=== PATIENT | female | born 1935 | race Caucasian/White ===

== ENCOUNTER 2018-03-16 22:59 | Emergency (ER) | payer OTHER ==
[~2018-03-16] VITALS: Ht 149.9 cm; Wt 58.2 kg
[~2018-03-16 22:59] MED LIST: AZIT500P1 PO; FAMO-90 PO; KEF500 PO; LISI10TA11; NAPR-1718 PO
[2018-03-16 23:12] VITALS: BP 181/74
[2018-03-16] MEDS ORDERED: VITD1000 PO (23:16)
[2018-03-16] MEDS ORDERED: ASPI81CT89 PO (23:16)
[2018-03-16] MEDS ORDERED: LOSA50TA39 PO (23:16)
--- NOTE | 2018-03-16 23:25 | NUR ---
BIB DAUGHTER. PT C/O CHEST DISCOMFORT X1 HR. PT STATES SHE WAS AT [facility] AND HAD HER BP TAKEN WHERE IT READ 180/77. PT HAS HX OF HTN AND HAS HOME MEDS. SHE STATES DIZZINESS BUT NO NAUSEA OR VOMITING AT THIS TIME. SHE HAS HEAD ACHE AND RIGHT SHOULDER PAIN. PT STATES 2/10 CHEST PAIN WITH BP OF 158/68 UPON ER ARRIVAL. A&OX4. PT DENIES SOB OR DYSPNEA. DAUGHTER AT BEDSIDE. ER MY AWARE. CONTINUE TO MONITOR.
--- NOTE | 2018-03-17 | NUR ---
PT IN BED POSITIONED FOR COMFORT WITH FAMILY AT BEDSIDE. VSS. ER MD AWARE. CONTINUE TO MONITOR.
[2018-03-17 00:29] LABS: BASOPHILS % (AUTO) 0.4 % (0.0-2.0); EOSINOPHILS # (AUTO) 0.1 K/uL (0-0.4); EOSINOPHILS % (AUTO) 1.2 % (0.0-4.0); HEMATOCRIT 36.1 % (36-48); LYMPHOCYTES # (AUTO) 2.6 K/uL (2.5-16.5); LYMPHOCYTES % (AUTO) 37.7 % (20.5-51.1); MEAN CORPUSCULAR HEMOGLOBIN 30 pg (27-31); MEAN CORPUSCULAR HGB CONC 33 g/dL (33-37); MEAN CORPUSCULAR VOLUME 91.1 fL (80-94); MONOCYTES # (AUTO) 0.6 K/uL (0.8-1.0); MONOCYTES % (AUTO) 8.1 % (1.7-9.3); NEUTROPHILS # (AUTO) 3.6 K/uL (1.8-7.7); NEUTROPHILS % (AUTO) 52.6 % (42.2-75.2); PLATELET COUNT (AUTO) 195 K/uL (140-450); RED BLOOD CELL COUNT(AUTO) 3.96 MIL/uL (4.20-5.40); RED CELL DISTRIBUTION WIDTH 14.1 % (11.6-13.7); WHITE BLOOD COUNT (AUTO) 6.8 K/uL (4.8-10.8)
[2018-03-17 00:36] LABS: APPEARANCE,URINE CLEAR (CLEAR); BILIRUBIN,URINE NEGATIVE (NEGATIVE); BLOOD, URINE TRACE-L (NEGATIVE); COLOR,URINE YELLOW (YELLOW); LEUKOCYTE ESTERASE ,URINE 1+ (NEGATIVE); NITRITE, URINE NEGATIVE (NEGATIVE); UGLUCOSE NEGATIVE (NEGATIVE)
[2018-03-17 00:47] LABS: PROTHROMBIN TIME 9.3 secs (10.8-13.4)
[2018-03-17 00:48] LABS: RBC,URINE 0-5 (RARE) /HPF (0-5); WBC,URINE 0-5 (RARE) /HPF (0-5)
[2018-03-17 00:49] LABS: ALBUMIN 3.8 g/dL (3.4-5.0); ANION GAP 11.9 (8-16); ASPARTATE AMINOTRANSFERASE 23 U/L (15-37); CARBON DIOXIDE 28.5 mmol/L (21-32); CHLORIDE 100 mmol/L (98-107); GLUCOSE 99 mg/dL (74-106); POTASSIUM 4.4 mmol/L (3.5-5.1); SODIUM SERUM 136 mmol/L (136-145); TOTAL BILIRUBIN 0.4 mg/dL (0.0-1.0); UREA NITROGEN, BLOOD 12 mg/dL (7-18)
--- NOTE | 2018-03-17 01:00 | NUR ---
PT IN BED POSITIONED FOR COMFORT WITH FAMILY AT BEDSIDE. VSS. ER MD AWARE. CONTINUE TO MONITOR.
[2018-03-17 01:45] VITALS: BP 158/74
--- NOTE | 2018-03-17 01:45 | NUR ---
Patient discharged with v/s stable. Written and verbal after care instructions given and explained. Patient verbalized understanding. Ambulatory with steady gait. All questions addressed prior to discharge. Advised to follow up with PMD.
== END 2018-03-17 01:45 | disposition home or self-care (01) ==
LOC: MED 22:59
DX: I10 Essential (primary) hypertension (principal); Z79.899 Other long term (current) drug therapy
CPT/HCPCS: 36415; 71045; 80053; 81001; 83880; 84484; 85025; 85610; 85730; 87086; 93005; 99285; Q0092

== ENCOUNTER 2021-06-15 11:14 | Emergency (ER) | payer OTHER ==
[~2021-06-15] VITALS: Ht 134.6 cm; Wt 58.5 kg
[~2021-06-15 11:14] MED LIST changes: +ASPI-1822 PO; -AZIT500P1 PO; -FAMO-90 PO; -KEF500 PO; -LISI10TA11; +LOSA50TA66 PO; -NAPR-1718 PO; +VITD1000 PO
[2021-06-15 11:17] VITALS: BP 159/70
--- NOTE | 2021-06-15 11:50 | NUR ---
86 YO F BIB DAUGHTER C/O PALPITATIONS AND HEADACHE X 4 WEEKS. PT ALSO COMPLAINS OF TROUBLE SLEEPING, DECREASED APPETITE AND WEIGHT LOSS. PT DENIES NUMBNESS, CHEST PAIN. DENIES N/V/D AT THIS TIME. PER PT, SHE HAS BEEN HAVING STRESS AND ANXIETY AT HOME. PMH: HTN MEDS: LOSARTAN, FAMOTIDINE NKA
--- NOTE | 2021-06-15 11:56 | NUR ---
DR CARRILLO AT BEDSIDE TO ASSESS PT
[2021-06-15] MEDS ORDERED: hydrOXYzine PAMOATE 25 MG CAP PO STA (12:02)
[2021-06-15] MEDS ORDERED: DICYCLOMINE HCL LIQUID 20 MG, ALUMINUM HYD/MAG/SIMETHICONE 30 ML, LIDOCAINE VISCOUS 2% ... PO ONE ×3 (12:05)
--- NOTE | 2021-06-15 12:22 | NUR ---
LAB AT BEDSIDE COLLECTING BLOOD
--- NOTE | 2021-06-15 12:30 | NUR ---
RADIOLOGY AT BEDSIDE TO COMPLETE XRAY
[2021-06-15] MEDS ORDERED: ALUMINUM HYD/MAG/SIMETHICONE 30 ML UDC ONE (12:31)
[2021-06-15] MEDS ORDERED: DICYCLOMINE HCL LIQUID 10 MG/5 ML UDC ONE (12:31)
[2021-06-15 12:42] LABS: BASOPHILS % (AUTO) 0.4 % (0.0-2.0); EOSINOPHILS % (AUTO) 0.1 % (0.0-4.0); HEMATOCRIT 37.1 % (36-48); HEMOGLOBIN 12.5 g/dL (12.0-16.0); LYMPHOCYTES # (AUTO) 1.3 K/uL (2.5-16.5); LYMPHOCYTES % (AUTO) 20.6 % (20.5-51.1); MEAN CORPUSCULAR HEMOGLOBIN 31 pg (27-31); MEAN CORPUSCULAR HGB CONC 34 g/dL (33-37); MEAN CORPUSCULAR VOLUME 90.5 fL (80-94); MONOCYTES # (AUTO) 0.4 K/uL (0.8-1.0); MONOCYTES % (AUTO) 6.2 % (1.7-9.3); NEUTROPHILS # (AUTO) 4.5 K/uL (1.8-7.7); NEUTROPHILS % (AUTO) 72.7 % (42.2-75.2); PLATELET COUNT (AUTO) 204 K/uL (140-450); RED CELL DISTRIBUTION WIDTH 12.9 % (11.6-13.7); WHITE BLOOD COUNT (AUTO) 6.2 K/uL (4.8-10.8)
[2021-06-15 13:45] LABS: ALBUMIN 3.6 g/dL (3.4-5.0); ANION GAP 13.2 (8-16); ASPARTATE AMINOTRANSFERASE 23 U/L (15-37); CARBON DIOXIDE 25.2 mmol/L (21-32); CHLORIDE 98 mmol/L (98-107); CREATININE 0.9 mg/dL (0.6-1.3); GLUCOSE 112 mg/dL (74-106); LIPASE 80 U/L (73-393); POTASSIUM 4.4 mmol/L (3.5-5.1); SODIUM SERUM 132 mmol/L (136-145); TOTAL BILIRUBIN 0.6 mg/dL (0.0-1.0); UREA NITROGEN, BLOOD 12 mg/dL (7-18)
[2021-06-15] MEDS ORDERED: MAG355OR2 PO (14:06)
[2021-06-15] MEDS ORDERED: FAMO-90 PO (14:06)
[2021-06-15] MEDS ORDERED: HYDR25CA10 PO (14:06)
[2021-06-15 14:45] VITALS: BP 141/37
--- NOTE | 2021-06-15 14:45 | NUR ---
Patient discharged with v/s stable. Written and verbal after care instructions given and explained. Patient alert, oriented and verbalized understanding of instructions. Ambulatory with steady gait. All questions addressed prior to discharge. ID band removed. Patient advised to follow up with PMD. Rx of PEPCID/HYDROXYZINEPAMOATE/MAALOX given. Patient educated on indication of medication including possible reaction and side effects. Opportunity to ask questions provided and answered.
== END 2021-06-15 14:45 | disposition home or self-care (01) ==
LOC: MED 11:14
DX: F41.9 Anxiety disorder, unspecified (principal); G47.00 Insomnia, unspecified; R00.2 Palpitations; K29.70 Gastritis, unspecified, without bleeding; I10 Essential (primary) hypertension; Z79.899 Other long term (current) drug therapy; Z79.82 Long term (current) use of aspirin
CPT/HCPCS: 36415; 71045; 80053; 83690; 84484; 85025; 93005; 99285; Q0177

== ENCOUNTER 2021-06-19 11:51 | Emergency (ER) | payer OTHER ==
[~2021-06-19] VITALS: Ht 157.5 cm; Wt 57.6 kg
[~2021-06-19 11:51] MED LIST changes: +FAMO-90 PO; +HYDR25CA10 PO; +MAG355OR2 PO
[2021-06-19 12:04] VITALS: BP 124/73
[2021-06-19 13:42] LABS: BASOPHILS % (AUTO) 0.3 % (0.0-2.0); EOSINOPHILS % (AUTO) 0.6 % (0.0-4.0); HEMATOCRIT 40.4 % (36-48); HEMOGLOBIN 13.7 g/dL (12.0-16.0); LYMPHOCYTES # (AUTO) 1.8 K/uL (2.5-16.5); LYMPHOCYTES % (AUTO) 24.1 % (20.5-51.1); MEAN CORPUSCULAR HEMOGLOBIN 31 pg (27-31); MEAN CORPUSCULAR HGB CONC 34 g/dL (33-37); MONOCYTES # (AUTO) 0.5 K/uL (0.8-1.0); MONOCYTES % (AUTO) 6.8 % (1.7-9.3); NEUTROPHILS # (AUTO) 5.2 K/uL (1.8-7.7); NEUTROPHILS % (AUTO) 68.2 % (42.2-75.2); PLATELET COUNT (AUTO) 231 K/uL (140-450); RED BLOOD CELL COUNT(AUTO) 4.49 MIL/uL (4.20-5.40); RED CELL DISTRIBUTION WIDTH 13.4 % (11.6-13.7); WHITE BLOOD COUNT (AUTO) 7.6 K/uL (4.8-10.8)
[2021-06-19 14:06] LABS: ALBUMIN 3.9 g/dL (3.4-5.0); ANION GAP 12.5 (8-16); ASPARTATE AMINOTRANSFERASE 24 U/L (15-37); CARBON DIOXIDE 27.9 mmol/L (21-32); CHLORIDE 94 mmol/L (98-107); CREATININE 1.1 mg/dL (0.6-1.3); GLUCOSE 112 mg/dL (74-106); POTASSIUM 5.4 mmol/L (3.5-5.1); SODIUM SERUM 129 mmol/L (136-145); TOTAL BILIRUBIN 0.6 mg/dL (0.0-1.0); UREA NITROGEN, BLOOD 18 mg/dL (7-18)
[2021-06-19] MEDS ORDERED: NACL 0.9% 250 ML IV ONE (14:20)
[2021-06-19] MEDS ORDERED: ACETAMINOPHEN 325 MG TAB PO STA (15:41)
[2021-06-19] MEDS ORDERED: ACETAMINOPHEN EXTRA STRENGTH 500 MG TAB ONE (15:51)
[2021-06-19] MEDS ORDERED: ACETAMINOPHEN EXTRA STRENGTH 500 MG TAB PO STA (16:08)
[2021-06-19 16:58] LABS: ANION GAP 12.3 (8-16); CARBON DIOXIDE 26.2 mmol/L (21-32); CHLORIDE 96 mmol/L (98-107); GLUCOSE 100 mg/dL (74-106); POTASSIUM 4.5 mmol/L (3.5-5.1); SODIUM SERUM 130 mmol/L (136-145); UREA NITROGEN, BLOOD 16 mg/dL (7-18)
[2021-06-19 18:02] VITALS: BP 133/49
== END 2021-06-19 18:11 | disposition home or self-care (01) ==
LOC: MED 11:51
DX: E87.5 Hyperkalemia (principal); R45.1 Restlessness and agitation; I10 Essential (primary) hypertension; Z79.82 Long term (current) use of aspirin; Z79.899 Other long term (current) drug therapy
CPT/HCPCS: 36415; 71046; 80048; 80053; 84484; 85025; 96360; 99285; J7030